=== PATIENT | female | born 1940 | race Two or more races ===

== ENCOUNTER 2023-12-02 12:19 | Emergency (ER) | payer OTHER, BC ==
[2023-12-02 12:32] VITALS: BP 191/65; PULSE 90; RESP 18; TEMP 97.5; BMI 25.9
[2023-12-02] MEDS ORDERED: DIPHTH,PERTUSS(ACELL),TET 0.5 ML DISP.SYRIN IM ONE (14:35)
[2023-12-02] MEDS: DIPHTH,PERTUSS(ACELL),TET 0.5 ML DISP.SYRIN IM ONE (14:39)
[2023-12-02] MEDS ORDERED: ACETAMINOPHEN 325 MG TABLET (FP) PO ONE (16:30)
== END 2023-12-02 16:56 | disposition home or self-care (01) ==
LOC: JER 12:19
PROC: 0HQ0XZZ Repair Scalp Skin, External Approach (ICD-10-PCS; principal; 2023-12-02)
PROC: 3E0234Z Introduction of Serum, Toxoid and Vaccine into Muscle, Percutaneous Approach (ICD-10-PCS; 2023-12-02)
DX: S01.01XA Laceration without foreign body of scalp, initial encounter (principal); W01.198A Fall on same level from slipping, tripping and stumbling with subsequent striking against other object, initial encounter
CPT/HCPCS: 12001-25; 70450-TC; 71046-TC-FY; 72125-TC; 72170-TC-FY; 90471; 90715; 99284-25

== ENCOUNTER 2025-04-15 19:36 | Inpatient (IN) | payer OTHER, BC ==
[2025-04-15 20:20] VITALS: TEMP 97.9; BMI 27.4
[2025-04-15] MEDS ORDERED: PANTOPRAZOLE SODIUM 40 MG/100 ML BAG IVPB ONE (20:43)
[2025-04-15] MEDS ORDERED: PANTOPRAZOLE SODIUM 40 MG VIAL ONE (20:43)
[2025-04-15] MEDS ORDERED: ACETAMINOPHEN INJECTION 100 ML ONE (20:43)
[2025-04-15 20:45] LABS: ABSOLUTE IMMATURE GRANULOCYTES 2.01 x10^3/uL (0.0-0.031); BASOPHILS # 0.02 x10^3/uL (0.01-0.08); EOSINOPHIL % 0.0 % (0.7-5.8); EOSINOPHILS # 0.00 x10^3/uL (0.04-0.36); MCHC 34.1 g/dl (32.2-35.5); MEAN CELL VOLUME 83.0 fl (79.4-94.8); MEAN PLT VOLUME 12.1 fl (9.4-12.3); MONOCYTE # 0.69 x10^3/uL (0.24-0.86); MONOCYTE % 2.7 % (4.7-12.5); RDW 14.6 % (12.5-17.0)
[2025-04-15] MEDS: ACETAMINOPHEN 1000 MG/100 ML BAG IVPB ONE (20:52)
[2025-04-15] MEDS: PANTOPRAZOLE SODIUM 40 MG VIAL IVPUSH ONE (20:52)
[2025-04-15 20:54] LABS: INR 1.24 (0.83-1.09); PROTHROMBIN TIME (PATIENT) 13.6 SEC (9.7-13.0)
[2025-04-15] MEDS ORDERED: PIPERACILLIN/TAZOB 4.5 GM 4.5 GM/100 ML BAG IVPB ONE (20:55)
[2025-04-15 20:56] LABS: ACTIVATED PTT 45.3 SECONDS (25.2-36.5)
[2025-04-15] MEDS: PIPERACILLIN/TAZOB 4.5 GM 4.5 GM in DEXTROSE 5%-WATER 100 ML IVPB ONE (21:07)
[2025-04-15] MEDS ORDERED: VANCOMYCIN 1 GM PREMIX (F) 1 GM/200 ML BAG ONE (21:19)
[2025-04-15] MEDS: VANCOMYCIN 1,000 MG in DEXTROSE 5%-WATER - 250 ML IVPB ONE (21:24)
[2025-04-15 21:32] LABS: CO2 9 mmol/L (21-32); GLUCOSE,RANDOM 220 mg/dL (74-106)
[2025-04-15 21:34] LABS: CREATININE 6.2 mg/dL (0.55-1.3)
[2025-04-15 21:35] LABS: SGOT/AST 420 U/L (15-37); SGPT/ALT 108 U/L (13-61)
[2025-04-15 21:37] LABS: ALK PHOS 481 U/L (45-117); TOT PROT 5.8 g/dl (6.4-8.2)
[2025-04-15] MEDS ORDERED: ALBUTEROL SO4 0.083% IH SOL 2.5 MG/3 ML VIAL.NEB. NEB ONE (22:15)
[2025-04-15] MEDS ORDERED: DEXTROSE 50%-WATER 25 GM/50 ML DISP.SYRIN ONE (22:15)
[2025-04-15] MEDS ORDERED: SODIUM ZIRCONIUM CYCLOSILICATE (LOKELMA) 10 GM PACKET ONE (22:16)
[2025-04-15] MEDS: DEXTROSE 50%-WATER - 25 GM/50 ML VIAL IVPUSH ONE (22:40)
[2025-04-15] MEDS: SODIUM ZIRCONIUM CYCLOSILICATE (LOKELMA) 5 GM PACKET PO ONE (22:40)
[2025-04-15] MEDS: ALBUTEROL SULFATE 0.021% (0.63 MG/3 ML) VIAL.NEB NEB ONE (22:40)
[2025-04-15] MEDS: INSULIN REGULAR HUMAN 100 UNITS/ML *VIAL IVPUSH ONE (22:40)
[2025-04-15 22:41] LABS: BG HCT 31.0 % (32.4-45.2); VENOUS BASE EXCESS -16.8 mmol/L (-2-2); VENOUS O2 SATURATION 68.6 % (70-80); VENOUS PCO2 24.0 mmHg (38-52); VENOUS PH 7.212 (7.310-7.410)
[2025-04-15 22:52] LABS: LACTIC ACID 3.6 mmol/L (0.4-2.0)
[2025-04-15 23:28] LABS: MCHC 33.0 g/dl (32.2-35.5); MEAN CELL VOLUME 85.5 fl (79.4-94.8); MEAN PLT VOLUME 12.2 fl (9.4-12.3); RDW 15.0 % (12.5-17.0)
[2025-04-15] MEDS: LACTATED RINGERS SOLUTION 1000 ML INFUS.BAG IV ONE (23:38)
[2025-04-16 00:22] LABS: LACTIC ACID 4.3 mmol/L (0.4-2.0)
[2025-04-16 00:25] LABS: CO2 9 mmol/L (21-32); GLUCOSE,RANDOM 351 mg/dL (74-106)
[2025-04-16 00:30] LABS: CREATININE 6.1 mg/dL (0.55-1.3)
[2025-04-16] MEDS ORDERED: LACTATED RINGERS SOLUTION 1,000 ML/1,000 ML INFUS.BAG IV SCH (01:00)
[2025-04-16] MEDS ORDERED: ACETAMINOPHEN 1000 MG/100 ML BAG IVPB PRN (01:15)
[2025-04-16 02:11] LABS: URINE APPEARANCE TURBID; URINE BILIRUBIN NEGATIVE (NEGATIVE); URINE COLOR YELLOW; URINE GLUCOSE (UA) 100 (NEGATIVE); URINE KETONE NEGATIOVE (NEGATIVE)
[2025-04-16 02:12] LABS: EPI CELLS 288.3 /uL (0-25.1); URINE LEUK ESTERASE LARGE (NEGATIVE); URINE NITRITE NEGATIVE (NEGATIVE); URINE PROTEIN 300 (NEGATIVE); URINE RBC 203.8 /uL (0-23.9); URINE UROBILINOGEN 0.2 mg/dL (0.2-1.0); URINE WBC 25950.0 /uL (0-25.8)
[2025-04-16 02:13] LABS: HYALINE CASTS 1352.10 /uL (0-3.1); URINE BACTERIA 56240.0 /uL (0-1359)
[2025-04-16] MEDS ORDERED: SODIUM BICARBONATE 8.4% 50 MEQ/50 ML DISP.SYRIN ONE (02:30)
[2025-04-16] MEDS ORDERED: CALCIUM GLUC IN NACL, ISO-OSM 1 GM/50 ML BAG IVPB ONE (02:30)
[2025-04-16] MEDS ORDERED: HEPARIN NA (PORCINE) 5,000 UNITS/ML 1ML VIAL ONE (02:31)
[2025-04-16] MEDS: HEPARIN NA (PORCINE) 5,000 UNITS/ML 1ML VIAL SQ SCH (02:46)
[2025-04-16] MEDS: SODIUM CHLORIDE 1,000 ML IV SCH ×4 (02:47→07:49)
[2025-04-16] MEDS: INSULIN DRIP - PLEASE ORDER UNDER SETS NR ONE (02:47)
[2025-04-16] MEDS: SODIUM BICARBONATE 8.4% 50 MEQ/50 ML DISP.SYRIN IVPUSH ONE (02:47)
[2025-04-16] MEDS: CALCIUM GLUCONATE IN NACL 1 GM/50 ML BAG IVPB ONE (02:47)
[2025-04-16] MEDS: DEXTROSE 5%-0.45% SALINE 1,000 ML IV SCH (02:48)
[2025-04-16] MEDS: INSULIN ASPART SLIDING SCALE (NOVOLOG) 1 VIAL SQ SCH (03:01)
[2025-04-16] MEDS: LORazepam 4 MG/1 ML VIAL IVPUSH ONE (04:04)
[2025-04-16 05:27] LABS: YEAST NONE SEEN (NEGATIVE)
[2025-04-16 07:41] VITALS: BP 76/59
[2025-04-16 08:16] VITALS: PULSE 47; RESP 10
[2025-04-16] MEDS ORDERED: PANTOPRAZOLE SODIUM 40 MG VIAL IVPUSH SCH (10:00)
== END 2025-04-16 11:31 | disposition expired | DRG 871 ==
LOC: JER 19:36 → JERBED 20:59
PROVIDERS: ADMIT Internal Medicine; ATTEND Internal Medicine
DX: A41.9 Sepsis, unspecified organism (principal); E11.10 Type 2 diabetes mellitus with ketoacidosis without coma; I24.89 Other forms of acute ischemic heart disease; N17.9 Acute kidney failure, unspecified; E87.1 Hypo-osmolality and hyponatremia; E87.4 Mixed disorder of acid-base balance; G30.9 Alzheimer's disease, unspecified; I10 Essential (primary) hypertension; I25.10 Atherosclerotic heart disease of native coronary artery without angina pectoris; E78.5 Hyperlipidemia, unspecified; M81.0 Age-related osteoporosis without current pathological fracture; E83.51 Hypocalcemia; E87.5 Hyperkalemia; E86.0 Dehydration; F02.80 Dementia in other diseases classified elsewhere, unspecified severity, without behavioral disturbance, psychotic disturbance, mood disturbance, and anxiety
CPT/HCPCS: 36415; 71045-TC-FY; 74176-TC; 80048; 80053; 81003; 82010; 82533; 82803; 82962; 83605; 83690; 83930; 84439; 84443; 84484; 85025; 85027; 85610; 85730; 86850; 86900; 86901; 87086; 93005; 93010; 99285-25